=== PATIENT | female | born 1965 | race Caucasian/White ===

== ENCOUNTER 2018-03-27 05:44 | Day surgery (SDC) | payer OTHER ==
[2018-03-27] MEDS ORDERED: NEOMYC/POLYMYX/BACIT 30 GM OINT (06:58)
[2018-03-27] MEDS ORDERED: GLYCOPYRROLATE 0.4 MG INJ (07:23)
[2018-03-27] MEDS ORDERED: PROPOFOL 20 ML (07:24)
[2018-03-27] MEDS ORDERED: NEOSTIGMINE 3 MG/3 ML SYRINGE (07:24)
[2018-03-27] MEDS ORDERED: ROCURONIUM 50 MG INJ (07:24)
[2018-03-27] MEDS ORDERED: CEFAZOLIN 1 GM INJ (07:24)
[2018-03-27] MEDS ORDERED: MIDAZOLAM 1 MG/ML 2 ML INJ (07:26)
[2018-03-27] MEDS ORDERED: ONDANSETRON 4 MG INJ (07:26)
[2018-03-27] MEDS ORDERED: FENTAnyl 50 MCG/ML VIAL (07:26)
[2018-03-27] MEDS ORDERED: DEXAMETHASONE 4 MG/ML 1 ML INJ (07:26)
[2018-03-27] MEDS ORDERED: morphine 2 MG INJ IV (07:30)
[2018-03-27] MEDS: LIDOCAINE 1% (MPF) 30 ML INJ (07:53)
[2018-03-27] MEDS ORDERED: IPRATROPIUM (NEB) 0.5 MG/2.5 ML AMP HHN (08:00)
[2018-03-27] MEDS ORDERED: OXYCODONE/ACETAMINOPHEN (5/325) TAB PO (08:00)
[2018-03-27] MEDS ORDERED: TRIMETHOBENZAMIDE 100 MG/ML VIAL IM (08:00)
[2018-03-27] MEDS ORDERED: hydrALAzine 20 MG INJ IV (08:00)
[2018-03-27] MEDS ORDERED: EPHEDrine SULFATE 50 MG/5 ML SYG IV (08:00)
[2018-03-27] MEDS ORDERED: ALBUTEROL 0.083% (NEB) 2.5 MG/3 ML AMP HHN (08:00)
[2018-03-27] MEDS ORDERED: FENTAnyl 50 MCG/ML VIAL IV ×2 (08:00)
[2018-03-27] MEDS ORDERED: MIDAZOLAM 1 MG/ML 2 ML INJ IV (08:00)
[2018-03-27] MEDS ORDERED: DIPHENHYDRAMINE 50 MG INJ IV (08:00)
[2018-03-27] MEDS ORDERED: ONDANSETRON 4 MG INJ IV (08:00)
[2018-03-27] MEDS ORDERED: MEPERIDINE 25 MG INJ IV (08:00)
[2018-03-27] MEDS ORDERED: HYDROmorphONE (0.2 MG/ML) 10ML SYG IV ×3 (08:00)
[2018-03-27] MEDS ORDERED: LABETALOL HCL 20MG INJ IV (08:00)
[2018-03-27] MEDS ORDERED: SUGAMMADEX SODIUM 200 MG/2 ML VIAL IV (08:06)
[2018-03-27] MEDS: ROPIVACAINE 0.5 % 30 ML VIAL (08:10)
[2018-03-27] MEDS ORDERED: KETOROLAC 30 MG INJ (08:10)
[2018-03-27] MEDS: morphine SULFATE/PF (10 MG/10 ML) INJ (08:10)
[2018-03-27] MEDS: FENTAnyl 50 MCG/ML VIAL IV ×2 (08:34→08:42)
[2018-03-27] MEDS: OXYCODONE/ACETAMINOPHEN (5/325) TAB PO (09:25)
== END 2018-03-27 10:00 | disposition home or self-care (01) ==
LOC: SDS 05:44
DX: M23.221 Derangement of posterior horn of medial meniscus due to old tear or injury, right knee (principal); M94.261 Chondromalacia, right knee; E03.9 Hypothyroidism, unspecified; E78.5 Hyperlipidemia, unspecified
CPT/HCPCS: 29881; 82306

== ENCOUNTER 2018-07-24 11:04 | Emergency (ER) | payer OTHER | END 2018-07-24 12:48 | disposition home or self-care (01) | LOC: FTE 11:04 | DX: B02.9 Zoster without complications (principal) | CPT/HCPCS: 99283; Z7502 ==

== ENCOUNTER 2018-11-25 12:54 | Emergency (ER) | payer OTHER ==
[2018-11-25 13:30] LABS: URINE BLOOD (Dip) POC 2+ (NEGATIVE); URINE GLUCOSE (Dip) POC Negative (NEGATIVE); URINE KETONES (Dip) POC Negative (NEGATIVE); URINE LEUKOCYTE EST (Dip) POC 2+ (NEGATIVE); URINE NITRITE (Dip) POC Negative (NEGATIVE); URINE TOTAL PROTEIN POC Negative (NEGATIVE)
== END 2018-11-25 14:08 | disposition home or self-care (01) ==
LOC: FTE 12:54
DX: N39.0 Urinary tract infection, site not specified (principal)
CPT/HCPCS: 81003; 99283

== ENCOUNTER 2019-05-04 15:15 | Emergency (ER) | payer OTHER ==
[2019-05-04 16:46] LABS: ADD MAN DIFF? NO
[2019-05-04 16:49] LABS: BASOPHILS % 0.3 % (0.0-2.0); EOSINOPHILS # 0.3 10^3/ul (0.0-0.5); EOSINOPHILS % 3.3 % (0.0-7.0); HEMATOCRIT 38.6 % (37.0-47.0); LYMPHOCYTES # 2.9 10^3/ul (0.8-2.9); LYMPHOCYTES % 31.5 % (15.0-51.0); MEAN CORPUSCULAR HGB CONC 33.7 g/dl (32.0-37.0); MEAN CORPUSCULAR VOLUME 88.9 fl (82.0-101.0); MEAN PLATELET VOLUME 8.9 fl (7.4-10.4); MONOCYTE # 0.4 10^3/ul (0.3-0.9); MONOCYTES % 4.2 % (0.0-11.0); NEUTROPHIL # 5.6 10^3/ul (1.6-7.5); NEUTROPHILS % 60.5 % (39.0-77.0); PLATELET COUNT 285 10^3/UL (140-415); RED BLOOD COUNT 4.34 10^6/ul (4.20-5.40); RED CELL DISTRIBUTION WIDTH 13.2 % (11.5-14.5)
[2019-05-04 16:49] LABS: WHITE BLOOD COUNT 9.3 10^3/ul (4.8-10.8)
[2019-05-04] MEDS: SOD CHLORIDE 0.9% 500 ML IV (16:51)
[2019-05-04] MEDS: morphine 4 MG/ML VIAL IV (16:51)
[2019-05-04] MEDS: ONDANSETRON 4 MG INJ IV (16:51)
[2019-05-04 16:52] LABS: ADD UMIC YES; UR ASCORBIC ACID NEGATIVE (NEGATIVE); UR BILIRUBIN (Dip) NEGATIVE (NEGATIVE); UR BLOOD (Dip) NEGATIVE (NEGATIVE); UR CLARITY CLEAR (CLEAR); UR COLOR STRAW (YELLOW); UR GLUCOSE (Dip) NEGATIVE (NEGATIVE); UR KETONES (Dip) NEGATIVE (NEGATIVE); UR LEUKOCYTE ESTERASE (Dip) TRACE Leu/ul (NEGATIVE); UR NITRITE (Dip) NEGATIVE (NEGATIVE); UR RBC 0 /HPF (0-5); UR SPECIFIC GRAVITY (Dip) 1.004 (1.003-1.030); UR TOTAL PROTEIN (Dip) NEGATIVE (NEGATIVE); UR UROBILINOGEN (Dip) NEGATIVE (NEGATIVE); UR WBC 1 /HPF (0-5)
[2019-05-04 17:08] LABS: ALANINE AMINOTRANSFERASE 15 IU/L (13-69); ALBUMIN 4.1 g/dl (3.3-4.9); ALBUMIN/GLOBULIN RATIO 1.24; ALKALINE PHOSPHATASE 100 IU/L (42-121); ANION GAP 6 (5-13); ASPARTATE AMINO TRANSFERASE 21 IU/L (15-46); BILIRUBIN,INDIRECT 0.5 mg/dl (0-1.1); BILIRUBIN,TOTAL 0.5 mg/dl (0.2-1.3); BLOOD UREA NITROGEN 12 mg/dl (7-20); CALCIUM 9.2 mg/dl (8.4-10.2); CARBON DIOXIDE 29 mmol/L (21-31); CHLORIDE 106 mmol/L (97-110); CREATININE 0.66 mg/dl (0.44-1.00); Estimated GFR > 60 mL/min (>60); GLUCOSE 92 mg/dl (70-220); LIPASE 102 U/L (23-300); POTASSIUM 3.6 mmol/L (3.5-5.1); SODIUM 141 mmol/L (135-144); TOTAL PROTEIN 7.4 g/dl (6.1-8.1)
== END 2019-05-04 18:16 | disposition home or self-care (01) ==
LOC: E/R 15:15
DX: R10.84 Generalized abdominal pain (principal)
CPT/HCPCS: 36415; 76705; 80053; 81001; 83690; 85025; 96374; 96375; 99285-25